=== PATIENT | female | born 1975 | race Caucasian/White ===

== ENCOUNTER → 2016-08-17 | Outpatient (CLI) | payer MEDICAID ==
[~2016-08-17] MED LIST: AC500T PO; ACC15GT EXT; ACHD5005 PO; ACYC200C PO; ACYC800T7 PO; ALPR1T PO; ALPR1TAB7 PO; ASPI325T32 PO; AZIT500T PO; BACL10TA PO; BACL20TA PO; BENZ100C18 PO; BUPR300T43 PO; BUPR300T51 PO; CEPH500C PO; CETI10TA17 PO; CLN150C1RX PO; CTLP20T; CYAN100021 PO; CYAN10006 PO; CYCL10TA9 PO; Cleocin PO; DIPH25TA82 PO; DXCC100CRX PO; ESTR1TAB24 PO; FLUO20CA42 PO; FLUO40CA PO; GABA-486 PO; GBPN300C PO; HYDR-2890 PO; HYDR-3816 PO; HYDR-707 PO; HYDR-757 PO; HYDR118S10 PO; HYDR1CAP2 PO; HYDR1TAB PO; IBP800T PO; IBUP-792 PO; IBUP200C11 PO; LAMO100T69 PO; LEVO750T39 PO; MELO-170 PO; MELO7.5T46 PO; METR500T PO; MS15TCR PO; MULT-241 PO; NAPR-243 PO; NAPR550T PO; ONDN4T PO; OXYC-12 PO; OXYC-272 PO; OXYC1CAP3 PO; PRD50T PO; PROP1TAB77; SILV25CR TP; SILV25CR21 TP; SULF1TAB38 PO; TRAZ-28 PO; VALA100033 PO; ZOLP5TAB7 PO
--- OUTSIDE RECORDS SUMMARY | 2016-08-17 12:38 | XMS REPORT ---
Author SHIRA Bruce Organization [employer] Address Unknown Phone Unavailable Care Team Providers Care Turn Supervisor Name Role Phone SHIRA RUBIO CP Unavailable Allergies No Known Allergies Problems Problem Type Condition Code Onset Dates Condition Status Problem Chronic back pain M54.9 Active Problem Obesity E66.9 Active Problem Anxiety F41.9 Active Problem Gynecologic exam normal Z01.419 Active Problem Hidradenitis L73.2 Active Problem Fungal rash of torso B36.9 Active Problem History of seizure Z87.898 Active Problem Fatty liver disease, nonalcoholic K76.0 Active Medications Medication Code System Code Instructions Start Date End Date Status Dosage Ibuprofen [facility] [address]-99 800 MG Orally Three times a day May 13, 2016 Jun 12, 2016 1 tablet Results No Known Results Summary Purpose [employer] Submission
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
== END ==
LOC: RAD 12:34
PROVIDERS: ATTEND Pain Medicine Pain Medicine
DX: M51.26 Other intervertebral disc displacement, lumbar region (principal); M54.6 Pain in thoracic spine
CPT/HCPCS: 72148

== ENCOUNTER → 2016-09-21 | Outpatient (CLI) | payer MEDICAID ==
--- NOTE | 2016-09-21 15:24 | Diagnostic Imaging Report ---
INDICATION: Chronic intermittent right knee pain and swelling. DISCUSSION: Two views of the right knee were obtained, no comparison. No acute fracture, dislocation, or other osseous abnormality identified. No significant degenerative disease. Alignment is anatomic. Soft tissues are unremarkable. IMPRESSION: 1. Negative right knee. Dictated by: Dictated on workstation # [id number]
== END ==
LOC: RAD 15:06
PROVIDERS: ATTEND Pain Medicine Pain Medicine
DX: M25.561 Pain in right knee (principal)
CPT/HCPCS: 73560

== ENCOUNTER 2016-10-15 10:10 | Outpatient (CLI) | payer MEDICAID ==
[~2016-10-15] VITALS: Ht 157.5 cm; Wt 112.5 kg
[2016-10-15] MEDS ORDERED: TRIAMCINOLONE ACET (KENALOG-40) 40 MG/ML 1 ML VIAL ONE (10:16)
[2016-10-15] MEDS ORDERED: BUPIVACAINE 0.25% 30 ML (SENSORCAINE) VIAL ONE (10:16)
[2016-10-15 10:28] VITALS: BP 131/89
[2016-10-15 11:16] VITALS: BP 130/91
--- NOTE | 2016-10-15 12:22 | Pain Medicine-Procedure ---
Procedure Pre-Op/Post-Op Diagnosis Diagnosis: Disc disorder with radiculopathy, lumbar Indications for Operation Low back pain Attending Surgeon Ricky Procedure Date of Service: Oct 15, 2016 Procedure: Lumbar Epidural Steroid Injection at the L2-L3 level under Fluoroscopic Guidance Procedure: Patient was identified in the holding area. After risks, benefits, and alternatives were discussed with the patient, informed consent was obtained. Patient was brought to the fluoroscopy suite and placed prone on the procedure room table. A time out was performed. Vital signs were monitored throughout the procedure. The patients low back was prepped and draped in the usual sterile fashion. The patients skin was anesthetized using 2% Lidocaine. A Tuohy needle was inserted and advanced to the L2-L3 epidural space under fluoroscopic guidance using the loss of resistance technique and intermittent projection of fluoroscopy. There was no paresthesia with needle placement. The needle position was confirmed in both the AP and lateral view. After negative aspiration 2ml of contrast was injected under live fluoroscopy which showed good spread of the contrast in the epidural space at the appropriate level, there was no intravascular or subarachnoid spread. Again, after negative aspiration for heme or CSF, 2 ml of 0.25% Bupivicaine, 2ml of preservative free normal saline, and 80mg of Kenalog was injected. The needle was removed and a sterile bandage was placed and the patient was transferred to the recovery area in stable condition. After a brief period of observation, patient was discharged to home with no new neurological deficits and no apparent complications. Complications None CELSA NOVAK MD Oct 15, 2016 12:22 pm
== END 2016-10-15 11:17 ==
LOC: CARD 10:10
PROVIDERS: ATTEND Pain Medicine Pain Medicine
DX: M51.16 Intervertebral disc disorders with radiculopathy, lumbar region (principal); E66.01 Morbid (severe) obesity due to excess calories; Z68.42 Body mass index [BMI] 45.0-49.9, adult; Z79.899 Other long term (current) drug therapy
CPT/HCPCS: 62323

== ENCOUNTER 2019-04-25 17:56 | Emergency (ER) | payer MEDICAID, OTHER ==
[~2019-04-25] VITALS: Ht 157 cm; Wt 112.0 kg
[~2019-04-25 17:56] MED LIST changes: +CYAN-41 PO; -CYAN10006 PO; +HYDR-4226 PO; +TRAZ-222 PO; -TRAZ-28 PO
--- NOTE | 2019-04-25 18:42 | ED Headache ---
General Chief Complaint: Head/Cervical Problems Stated Complaint: HEADACHE Nursing Triage Note: STATES SHE HAS HAD A HEADACHE SINCE BEING TOLD HER YOUNG DAUGHTER COULD HAVE CANCER. HAS TAKEN TYLENOL, HYDROCODONE, AND XANAX WITH NO RELIEF. Nursing Sepsis Screen: No Definite Risk Source: patient Exam Limitations: no limitations History of Present Illness Date Seen by Provider: Apr 25, 2019 Time Seen by Provider: 18:20 Initial Comments This 43-year-old woman presents to the emergency room complaining of headache for the past several days. She felt ill 3 days ago and slept much of the day. Headache has been fairly constant for about 2 weeks. She admits to being very anxious right now because of health issues with her daughter. Her daughter has a tonsillectomy pending May 15. In consultation with her daughter's surgeon the possibility of cancer was mentioned. This has the patient very tense and anxious. She is not sleeping well. She is treated for anxiety with alprazolam. She states she cries every night. She took Tylenol and Mobic but still has headache. Her primary care providers Dr. Bhatt in [place]. She has associated nausea Allergies and Home Medications Allergies Coded Allergies: ketorolac (Unverified Allergy, Intermediate, SWELLING, 07/29/16) tramadol (Unverified Allergy, Mild, 07/29/16) Penicillins (Unverified Allergy, Unknown, 07/24/16) Home Medications Acyclovir 800 Mg Tablet, 800 MG PO 5XD Prescribed by: SHIRA BARNETT on 01/22/162228 Alprazolam 1 Mg Tablet, 1 MG PO QID PRN for ANXIETY, (Reported) Alprazolam 1 Mg Tablet, 1 MG PO QID PRN for ANXIETY, (Reported) Aspirin 325 Mg Tablet.dr, 325 MG PO DAILY PRN for PAIN, (Reported) Baclofen 10 Mg Tablet, 10 MG PO TID PRN for MUSCLE SPASMS, (Reported) Bupropion HCl 300 Mg Tab.er.24h, 300 MG PO DAILY, (Reported) Bupropion HCl 300 Mg Tab.er.24h, 300 MG PO DAILY, (Reported) Cetirizine HCl 10 Mg Tablet, 10 MG PO DAILY PRN for ALLERGIES, (Reported) Cyanocobalamin 1,000 Mcg/15 Ml Oral.susp, 1 TAB PO DAILY, (Reported) Cyanocobalamin (Vitamin B-12) 1,000 Mcg Tablet, 1,000 MCG PO DAILY, (Reported) Cyclobenzaprine HCl 5 Mg Tablet, 5 MG PO HS PRN for SPASMS Prescribed by: MINOR LUKE on 04/25/191846 Estradiol 1 Mg Tablet, 1 MG PO DAILY, (Reported) Gabapentin 100 Mg Capsule, 100 MG PO TID, (Reported) Levofloxacin 750 Mg Tablet, 750 MG PO DAILY Prescribed by: FRANK BECKFORD on 07/26/16 1218 Meloxicam 7.5 Mg Tablet, 7.5 MG PO BID, (Reported) Meloxicam 7.5 Mg Tablet, 7.5 MG PO BID, (Reported) Ondansetron 4 Mg Tab.rapdis, 4 MG PO Q4H PRN for NAUSEA/VOMITING Prescribed by: MINOR LUKE on 04/25/191846 Silver Sulfadiazine 25 Gm Cream..g., 25 GM TP BID Prescribed by: SIHRA BARNETT on 01/22/169 Trazodone HCl 50 Mg Tablet, 50 MG PO HS, (Reported) Patient Home Medication List Home Medication List Reviewed: Yes Review of Systems Review of Systems Constitutional: no symptoms reported Eyes: No Symptoms Reported Ears, Nose, Mouth, Throat: no symptoms reported Respiratory: no symptoms reported Cardiovascular: no symptoms reported Gastrointestinal: see HPI Genitourinary: no symptoms reported : No Musculoskeletal: no symptoms reported Skin: no symptoms reported Psychiatric/Neurological: See HPI Past Lvmujax-Krgdfv-Prvydm Hx Past Med/Social Hx: Reviewed and Corrections made Patient Social History Alcohol Use: Denies Use Recreational Drug Use: No Smoking Status: Current Everyday Smoker Type Used: Cigars Recent Foreign Travel: No Contact w/Someone Who Travel: No Recent Infectious Disease Expo: No Recent Hopitalizations: No Immunizations Up To Date Date of Influenza Vaccine: May 08, 2016 Seasonal Allergies Seasonal Allergies: No Past Medical History Surgeries: Yes Section, Gallbladder, Hysterectomy, Tonsillectomy Respiratory: No Cardiac: No Neurological: Yes Headaches /Migraines, Seizure Disorder : No Reproductive Disorders: No Genitourinary: No Gastrointestinal: No Musculoskeletal: No Endocrine: No HEENT: No Cancer: No Did You Recieve Any Treatments: No Psychosocial: Yes PTSD, Depression Integumentary: No Physical Exam Vital Signs Vital Signs - First Documented 04/25/19 18:12 Temp 36.4 Pulse 94 Resp 16 B/P (MAP) 136/75 (95) Pulse Ox 97 O2 Delivery Room Air Capillary Refill : Less Than 3 Seconds Height, Weight, BMI Height: 5'2.00" Weight: 248lbs. 0.0oz. 112.410988qu; 45.00 BMI Method:Estimated General Appearance: WD/WN, no apparent distress, obese HEENT: PERRL/EOMI, normal ENT inspection, pharynx normal Neck: normal inspection, other (Muscle tension in the cervical paraspinous muscles) Cardiovascular: regular rate, rhythm, no edema, no murmur Respiratory: lungs clear, normal breath sounds, no respiratory distress, no accessory muscle use Gastrointestinal: normal bowel sounds, non tender, soft Extremities: normal inspection, no pedal edema Psychiatric: alert, oriented x 3 Crainal Nerves: normal hearing, normal speech, PERRL Motor/Sensory: no motor deficit, no sensory deficit Skin: normal color, warm/dry Procedures/Interventions Date of ETT Placement: Jul 24, 2016 Time of ETT Placement: 1135 Progress/Results/Core Measures Results/Orders My Orders Orders - MINOR DUMONT MD Ondansetron Oral Dissolve Tab (Zofran (04/25/19 18:45) Vital Signs/I&O 04/25/19 04/25/19 18:12 18:53 Temp 36.4 36.4 Pulse 94 94 Resp 16 16 B/P (MAP) 136/75 (95) 136/75 (95) Pulse Ox 97 97 O2 Delivery Room Air Blood Pressure Mean: 95 Progress Progress Note : Progress Note She was given Zofran for her nausea. See discharge instructions. Departure Impression Primary Impression: Acute headache Qualified Codes: R51 - Headache Additional Impressions: Nausea Anxiety Insomnia Qualified Codes: G47.00 - Insomnia, unspecified Disposition: 01 HOME, SELF-CARE Condition: Improved Departure-Patient Inst. Decision time for Depature: 18:42 Referrals: NO,LOCAL PHYSICIAN (PCP/Family) Primary Care Physician Patient Instructions: Headache, Adult Add. Discharge Instructions: Drink plenty of clear liquids. Take Zofran (ondansetron) as prescribed for naus ea and vomiting. You may continue using Mobic as prescribed and add Tylenol (acetaminophen) up to 1000 mg every 6 hours as needed for pain. You may continue using alprazolam as previously prescribed. For muscle tension you may add cyclobenzaprine as prescribed. Please be cautious with cyclobenzaprine as it may cause drowsiness, especially when combined with alprazolam. Follow-up with your primary care provider as soon as possible and return to the emergency room if you have worsening symptoms. All discharge instructions reviewed with patient and/or family. Voiced understanding. Scripts Cyclobenzaprine HCl (Cyclobenzaprine HCl) 5 Mg Tablet 5 MG PO HS PRN for SPASMS, #5 TAB Prov: MINOR DUMONT MD 04/25/19 Ondansetron (Ondansetron Odt) 4 Mg Tab.rapdis 4 MG PO Q4H PRN for NAUSEA/VOMITING, #10 TAB Prov: MINOR DUMONT MD 04/25/19 MINOR DUMONT MD Apr 25, 2019 18:42
[2019-04-25] MEDS ORDERED: ONDANSETRON 4 MG (ZOFRAN) ORAL DISSOLVE TAB SL ONE (18:45)
[2019-04-25] MEDS ORDERED: CYCL5TAB PO (18:47)
[2019-04-25] MEDS ORDERED: ONDA4TAB11 PO (18:47)
[2019-04-25 18:53] VITALS: BP 136/75
== END 2019-04-25 18:53 | disposition home or self-care (01) ==
LOC: EDUNIT# 17:56 → ER 17:57
DX: R51 Headache (principal); R11.0 Nausea; F41.9 Anxiety disorder, unspecified; G47.00 Insomnia, unspecified; G40.909 Epilepsy, unspecified, not intractable, without status epilepticus; F43.10 Post-traumatic stress disorder, unspecified; F32.9 Major depressive disorder, single episode, unspecified; F17.290 Nicotine dependence, other tobacco product, uncomplicated; Z86.69 Personal history of other diseases of the nervous system and sense organs; Z88.0 Allergy status to penicillin; Z88.5 Allergy status to narcotic agent; Z88.6 Allergy status to analgesic agent; Z79.82 Long term (current) use of aspirin; Z90.710 Acquired absence of both cervix and uterus; Z90.89 Acquired absence of other organs
CPT/HCPCS: 99283

== ENCOUNTER 2020-08-25 21:41 | Emergency (ER) | payer MEDICAID ==
[~2020-08-25] VITALS: Ht 154.9 cm; Wt 103.0 kg
[~2020-08-25 21:41] MED LIST changes: -BUPR300T51 PO; +BUPR300T98 PO; +CYCL5TAB PO; +ONDA4TAB11 PO; -TRAZ-222 PO; +TRZ50T PO
[2020-08-25 21:48] VITALS: BP 155/78
[2020-08-25] MEDS ORDERED: BUPIVACAINE 0.5% 30 ML (SENSORCAINE) VIAL ONE (21:55)
--- NOTE | 2020-08-25 21:55 | ED EENT ---
History of Present Illness General Chief Complaint: Dental Problems/Pain Stated Complaint: DENTAL PAIN Source: patient Exam Limitations: no limitations History of Present Illness Date Seen by Provider: Aug 25, 2020 Time Seen by Provider: 21:52 Initial Comments To ER with left lower dental pain. This is been ongoing for about a week. She saw Dr. Ayers and is scheduled to have her tooth removed on the . She was given clindamycin and Tylenol with codeine but states that she is out of the Tylenol with codeine and the pain is intense. This is the only tooth she has left in the mandible. Timing/Duration: abrupt Severity: moderate Location: dental Prearrival Treatment: no prearrival treatment Associated Symptoms: denies symptoms Allergies and Home Medications Allergies Coded Allergies: ketorolac (Unverified Allergy, Intermediate, SWELLING, 07/29/16) tramadol (Unverified Allergy, Mild, 07/29/16) Penicillins (Unverified Allergy, Unknown, 07/24/16) Home Medications Acyclovir 800 Mg Tablet, 800 MG PO 5XD Prescribed by: SHIRA BARNETT on 01/22/162228 Alprazolam 1 Mg Tablet, 1 MG PO QID PRN for ANXIETY, (Reported) Alprazolam 1 Mg Tablet, 1 MG PO QID PRN for ANXIETY, (Reported) Aspirin 325 Mg Tablet.dr, 325 MG PO DAILY PRN for PAIN, (Reported) Baclofen 10 Mg Tablet, 10 MG PO TID PRN for MUSCLE SPASMS, (Reported) Bupropion HCl 300 Mg Tab.er.24h, 300 MG PO DAILY, (Reported) Bupropion HCl 300 Mg Tab.er.24h, 300 MG PO DAILY, (Reported) Cetirizine HCl 10 Mg Tablet, 10 MG PO DAILY PRN for ALLERGIES, (Reported) Cyanocobalamin 1,000 Mcg/15 Ml Oral.susp, 1 TAB PO DAILY, (Reported) Cyanocobalamin (Vitamin B-12) 1,000 Mcg Tablet, 1,000 MCG PO DAILY, (Reported) Cyclobenzaprine HCl 5 Mg Tablet, 5 MG PO HS PRN for SPASMS Prescribed by: MINOR LUKE on 04/25/19 184 Estradiol 1 Mg Tablet, 1 MG PO DAILY, (Reported) Gabapentin 100 Mg Capsule, 100 MG PO TID, (Reported) Levofloxacin 750 Mg Tablet, 750 MG PO DAILY Prescribed by: FRANK BECKFORD on 07/26/16 1218 Meloxicam 7.5 Mg Tablet, 7.5 MG PO BID, (Reported) Meloxicam 7.5 Mg Tablet, 7.5 MG PO BID, (Reported) Ondansetron 4 Mg Tab.rapdis, 4 MG PO Q4H PRN for NAUSEA/VOMITING Prescribed by: MINOR LUKE on 04/25/19 1847 Silver Sulfadiazine 25 Gm Cream..g., 25 GM TP BID Prescribed by: SHIRA BARNETT on 01/22/16 2229 Trazodone HCl 50 Mg Tablet, 50 MG PO HS, (Reported) Patient Home Medication List Home Medication List Reviewed: Yes Review of Systems Review of Systems Constitutional: see HPI Eyes: No Symptoms Reported Ears: No Symptoms Reported Nose: no symptoms reported Mouth: see HPI Throat: no symptoms reported Respiratory: no symptoms reported Cardiovascular: no symptoms reported Musculoskeletal: no symptoms reported Skin: no symptoms reported Neurological: No Symptoms Reported Past Aahbzog-Pvfpuz-Axwqub Hx Patient Social History Type Used: Cigars Recent Hopitalizations: No Immunizations Up To Date Date of Influenza Vaccine: May 08, 2016 Seasonal Allergies Seasonal Allergies: No Past Medical History Surgeries: Yes Section, Gallbladder, Hysterectomy, Tonsillectomy Respiratory: No Cardiac: No Neurological: Yes Headaches /Migraines, Seizure Disorder Reproductive Disorders: No Genitourinary: No Gastrointestinal: No Musculoskeletal: No Endocrine: No HEENT: No Cancer: No Did You Recieve Any Treatments: No Psychosocial: Yes PTSD, Depression Integumentary: No Physical Exam Vital Signs Vital Signs - First Documented 08/25/20 21:48 Temp 36.5 Pulse 104 Resp 18 B/P (MAP) 155/78 (103) O2 Delivery Room Air Height, Weight, BMI Height: 5'2.00" Weight: 248lbs. 0.0oz. 112.815758qx; 45.00 BMI Method:Estimated General Appearance: WD/WN, no apparent distress Eyes: bilateral eye normal inspection, bilateral eye PERRL, bilateral eye EOMI Ears: bilateral ear auricle normal, bilateral ear canal normal, bilateral ear TM normal Mouth/Throat: No mandibular swelling; other (This left lower molar is the only tooth left on the mandible. There is no surrounding abscess or swelling.) Neck: non-tender, full range of motion; No lymphadenopathy (R) Respiratory: no respiratory distress, no accessory muscle use Neurologic/Psychiatric: alert, normal mood/affect, oriented x 3 Skin: normal color, warm/dry Procedures/Interventions Date of ETT Placement: Jul 24, 2016 Time of ETT Placement: 1135 Progress/Results/Core Measures Results/Orders My Orders Orders - DAVID SANTOYO APRN Rx-Hydrocodone/Apap 5-325 Mg (Rx-Vicodin (08/25/20 22:00) Bupivacaine 0.5% Injection (Sensorcaine (08/25/20 21:55) Vital Signs/I&O 08/25/20 21:48 Temp 36.5 Pulse 104 Resp 18 B/P (MAP) 155/78 (103) O2 Delivery Room Air Departure Communication (Admissions) I offered her an inferior alveolar nerve block and she initially declined but sh e did ultimately agree to try it. . I am very hesitant to prescribe opiates given her history of overdose although it was several years ago. Impression Primary Impression: Pain, dental Disposition: 01 HOME, SELF-CARE Condition: Stable Departure-Patient Inst. Decision time for Depature: 21:54 Referrals: NO,LOCAL PHYSICIAN (PCP/Family) Primary Care Physician Patient Instructions: Dental Pain ED Add. Discharge Instructions: 1. Tylenol and ibuprofen in addition to the clindamycin that you are already on. All discharge instructions reviewed with patient and/or family. Voiced understanding. DAVID SANTOYO APRN Aug 25, 2020 21:55
[2020-08-25] MEDS ORDERED: RX-HYDROCODONE/APAP 5/325 MG #4 TAB PK PO PRN (22:00)
== END 2020-08-25 22:03 | disposition home or self-care (01) ==
LOC: EDUNIT# 21:41 → ER 21:43
DX: K08.89 Other specified disorders of teeth and supporting structures (principal); F32.9 Major depressive disorder, single episode, unspecified; G40.909 Epilepsy, unspecified, not intractable, without status epilepticus; Z88.5 Allergy status to narcotic agent; Z88.0 Allergy status to penicillin; Z88.6 Allergy status to analgesic agent; Z79.82 Long term (current) use of aspirin
CPT/HCPCS: 99283